=== PATIENT | male | born 1965 | race Caucasian/White ===

== ENCOUNTER → 2022-01-10 | Day surgery (SDC) | payer BC ==
[~2022-01-10] VITALS: Ht 172.7 cm; Wt 95.3 kg
[2022-01-10 07:14] VITALS: BP 156/94
[2022-01-10 08:09] VITALS: BP 118/87
[2022-01-10 08:19] VITALS: BP 127/99
[2022-01-10 08:35] VITALS: BP 136/95
== END | disposition home or self-care (01) ==
LOC: SDC 01-06 08:45
PROVIDERS: ATTEND Surgery
DX: Z12.11 Encounter for screening for malignant neoplasm of colon (principal); K57.30 Diverticulosis of large intestine without perforation or abscess without bleeding; Z79.899 Other long term (current) drug therapy

== ENCOUNTER → 2023-01-02 | Day surgery (SDC) | payer BC ==
[2022-12-30 13:22] VITALS: BP 160/88
[~2023-01-02] VITALS: Ht 172.7 cm; Wt 99.8 kg
[~2023-01-02] MED LIST: COLACE100 MG PO; HYDROCODONE-AC1 EAC1 PO; ONDANSETRON HYDR4 M1 PO
[2023-01-02 09:35] VITALS: BP 138/68
[2023-01-02 12:53] VITALS: BP 118/79
[2023-01-02 13:05] VITALS: BP 122/70
[2023-01-02 13:23] VITALS: BP 127/78
[2023-01-02 13:38] VITALS: BP 127/83
[2023-01-02 13:52] VITALS: BP 121/79
== END | disposition home or self-care (01) ==
LOC: SDC 12-30 13:15
PROVIDERS: ATTEND Surgery
DX: K42.0 Umbilical hernia with obstruction, without gangrene (principal)